=== PATIENT | male | born 1950 | race Two or more races ===

== ENCOUNTER 2024-10-03 14:01 | Outpatient (AMB) | payer MEDICARE, SELFPAY ==
[2024-10-03 09:57] VITALS: BP 131/78; PULSE 65; RESP 17; TEMP 36.6; O2SAT 97; BMI 25.2
--- NOTE | 2024-10-03 15:28 | PD.RESCLINIC ---
Vital Signs 10/03/24 09:57 Height 1.65 m Height Method Stated Weight 68.71 kg Weight Measurement Method Standing Scale BMI 25.2 BP 131/78 H Blood Pressure Source Automatic Cuff Blood Pressure Location Left Upper Arm Position Sitting Respiration 17 Pulse 65 Pulse Source Monitor Temp 97.8 F Temp Source Oral Pulse Oximetry (%) 97 Oxygen Delivery Method Room Air Allergies/Meds Allergies & Medications Allergies No Known Allergies Allergy (Verified 10/19/24 09:58) Medication Reconciliation blood pressure monitor (Blood Pressure Kit) #1 ea 02/13/24 [Rx Confirmed 10/19/24] blood sugar diagnostic (Accu-Chek Guide test strips) #100 ea 02/27/24 [Rx Confirmed 10/19/24] lancets (Accu-Chek Softclix Lancets) #100 ea 02/27/24 [Rx Confirmed 10/19/24] blood-glucose meter (Accu-Chek Guide Glucose Meter) #1 ea 02/29/24 [Rx Confirmed 10/19/24] aspirin 81 mg capsule 81 mg PO QDAY #30 caps 08/08/24 [Rx Confirmed 10/19/24] atorvastatin 80 mg tablet 80 mg PO QPM 1 month #30 tabs 08/08/24 [Rx Confirmed 10/19/24] carvedilol 12.5 mg tablet 12.5 mg PO BID #30 tabs 08/08/24 [Rx Confirmed 10/19/24] clopidogrel 75 mg tablet (Plavix) 75 mg PO QDAY 1 month #30 tabs 08/08/24 [Rx Confirmed 10/19/24] empagliflozin 10 mg tablet 10 mg PO QDAY #30 tabs 08/08/24 [Rx Confirmed 10/19/24] flash glucose scanning reader (Backupify Selam 2 [place]) #1 ea 08/08/24 [Rx Confirmed 10/19/24] furosemide 40 mg tablet 40 mg PO QAM 1 month #30 tabs 08/08/24 [Rx Confirmed 10/19/24] loperamide 2 mg capsule 2 mg PO Q6H PRN loose stool #14 caps 08/08/24 [Rx Confirmed 10/19/24] losartan 100 mg tablet 100 mg PO QDAY 1 month #30 tabs 08/08/24 [Rx Confirmed 10/19/24] metformin 500 mg tablet,extended release 24 hr 500 mg PO QDAY 1 month #30 tabs 08/08/24 [Rx Confirmed 10/19/24] flash glucose sensor (FreeStyle Selam 2 Sensor kit) #1 ea 10/03/24 [Rx Confirmed 10/19/24] MA Intake Visit Data Collection New Patient or Established: Established Patient (seen at [facility] within 3 years) Seen by Clinical Staff ONLY (RN/MA): No Pain Present Currently: No Pain scale:: 0 Pain Scale Used: [place]/Numerical PCP or OBGYN visit in last 3 months: Yes Hx Now: No Do You Feel Safe at Home: Yes Authorities Contacted: N/A Smoking Status Smoking Status: Never smoker Immunization / Flu Flu Vaccine in the Last 12 Months: No Flu Vaccine Exclusion Criteria: No Exclusion Criteria Past Medical History Past Medical History NEUROLOGIC: Negative Neurological Disorders CARDIAC: Negative Cardiac Disorders or Congestive Heart Failure RESPIRATORY: Negative Chronic Obstructive Pulmonary Disease (COPD) GASTROINTESTINAL: Positive Gastrointestinal Disorders and Hiatal Hernia; Negative Hepatitis or Colorectal Cancer GENITOURINARY: Negative Genitourinary Disorders, Renal Disease or Prostate Cancer REPRODUCTIVE: Negative Breast Cancer or Testicular Cancer MUSCULOSKELETAL: Negative Bone Cancer ENDOCRINE: Positive Endocrine Disorders and Diabetes Mellitus Type 2; Negative Diabetes Mellitus Type 1 HEMATOLOGIC: Negative Blood Disorders OTHER HISTORY: Positive Hospitalization; Negative Down Syndrome, Developmental Delay, Shingles, Falls, Blood Transfusions, Blood Transfusion Reaction, Anesthesia Reactions, Organ Transplant, Chemotherapy, Radiation Therapy, Hyperbaric Therapy, MRSA, VRSA, Vancomycin-Resistant Enterococci, Human Immunodeficiency Virus (HIV), Chicken Pox, Measles, Mumps, Rubella (Pashto Measles), Pertussis, Clostridium Difficile, Cancer, Breast Cancer, Cervical Cancer, Colorectal Cancer, Lung Cancer, Ovarian Cancer, Prostate Cancer or Testicular Cancer Family History FAMILY HISTORY: Negative Family Psychiatric Problems, Family Respiratory Disorders, Family Cardiac Disorders, Family Gastrointestinal Problems, Family Cancer, Family Surgery or Family Anesthesia Reaction Surgical History SURGICAL: Negative Cardiac Surgery, Endocrine Surgery, Ear Surgery, Abdominal Surgery, Nephrectomy, Joint Replacement, Neurologic Surgery, Vasectomy or Organ Transplant Social History SMOKING STATUS: Smoking status: Never smoker SECOND HAND EXPOSURE: second hand exposure: No ALCOHOL: Alcohol Intake: Never HOUSING: Housing: House LIVES WITH: Lives With: Family OCCUPATION: Current occupation: [employer] Patient [employer] Questionaires Social History Living Situation History Housing: House Tobacco History Smoking Status: Never smoker Second Hand Smoke Exposure: No Alcohol History Alcohol Intake: Never Substance Use History Substance Use: meth Domestic Abuse History Do You Feel Safe at Home: Yes Review of Systems Report any current symptoms Only answer those that you have currently: Past Medical History Past Medical History Have you ever been diagnosed with any of the following: Cardiology Problems Congestive Heart Failure: No Respiratory Problems Chronic Obstructive Pulmonary Disease (COPD): No Stomache/Intestinal Problems Hepatitis: No Colorectal Cancer: No Hiatal Hernia: Yes Genital/Urinary Problems Renal Disease: No Prostate Cancer: No Reproductive Problems Breast Cancer: No Testicular Cancer: No Musculoskeletal Problems Bone Cancer: No Endocrine Problems Diabetes Mellitus Type 1: No Diabetes Mellitus Type 2: Yes Other Problems Hospitalization: Yes Down Syndrome: No Developmental Delay: No Shingles: No Falls: No Blood Transfusions: No Blood Transfusion Reaction: No Anesthesia Reactions: No Organ Transplant: No Chemotherapy: No Radiation Therapy: No Hyperbaric Therapy: No MRSA: No VRSA: No Vancomycin-Resistant Enterococci: No Human Immunodeficiency Virus (HIV): No Chicken Pox: No Measles: No Mumps: No Rubella (Pashto Measles): No Pertussis: No Clostridium Difficile: No Cancer: No Cervical Cancer: No Lung Cancer: No Ovarian Cancer: No History of Present Illness HPI Narrative Patient is a 73-year-old male with past medical history of HTN, non-insulin dependent DM II, Methamphetamine abuse, HFrEF and recent CVA presented to the clinic for follow up visit after hospital discharge. 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 MRI was done in the hospital which showed. Large acute infarct left brainstem, pontine level. Patient had physical and speech therapy evaluation and was discharged on dual antiplatelets along with statin. He was also referred to Neurology and has an upcoming appointment next month. He is also being followed by home physical therapy starting today. 08/08/2024: Patient comes in as follow up from last month for his labs and got his new insurance card. He endorses increased stool production after starting metformin. Endorses to still eating chicken and fish. He needs to decrease consumption of soda. Patient denies headache, fever, chills, chest pain, palpitation, shortness of breath, dizziness, nausea, vomiting. Continue losartan, clopidogrel, atorvastatin, lasix, Jardiance, and metformin. Will add loperamide for excessive diarrhea episodes. 10/03/2024: Patient and family (Samara) here with Freestyle Selam 2 reader, but no sensor. Sensor ordered. No acute problems since July. Diarrhea improved, not taking loperamide. Had attempted stool studies outpatient but issue with collection, and so was unable to submit for analysis or process. No plans to pursue further stool study samples at this time. Has not seen supervisor dried yeast or eye doctor within last year. Encourage to see for yearly check up for diabetes. Last A1c in January, will get recheck. See patient again when pickup FS2 sensor and A1c. Review of Systems Review of Systems Systems Reviewed: All systems reviewed, normal except as documented Objective/Exam Narrative Physical exam: Constitutional: NAD. Sitting comfortably. HEENT: NCAT. Vision grossly intact. Respiratory: Non-tachypneic. Cardiac: Non-tachycardic. MSK: No B/L LE edema. Skin: Warm, dry, intact. No obvious lesions. Neuro: Motor and sensation grossly intact. Psychiatric: Appropriate mood and affect. Assessment & Plan Diagnosis / Problem List (1) Diabetes mellitus: Status: Chronic Qualifiers: Diabetes mellitus complication status: without complication Diabetes mellitus care home insulin use: without local company intermodal truck driver use Diabetes mellitus type: type 2 Qualified Code(s): E11.9 - Type 2 diabetes mellitus without complications Assessment & Plan: Last A1c on file is from January,.0 Plan: Continue metformin 500mg ER, not increasing due to diarrhea at this time Continue Jardiance Recheck A1c Freestyle Selam 2 sensor ordered, return to clinic to show how to put on Patient already has FS2 sensor Explained goal time in range and A1c Patient need yearly eye exam and foot exam (2) Diarrhea: Status: Resolved Assessment & Plan: Ddx: Metformin-induced diarrhea vs infectious diarrhea Most likely metformin-induced because the incidence of diarrhea increased in frequency with metformin. Infectious cause is not as likely considering no sick contacts and no recent travel. Patient endorses diarrhea episodes every other day. He noticed it on metformin. Attempted stool studes unsuccessfuly, not interested in continuing to pursue at this time (3) Heart failure with reduced ejection fraction: Status: Chronic Assessment & Plan: Echo 01/2025: Estimated EF 40-45%. Mild LVH. Mild hypokinesis of the basal mckeon. Plan: Continue lasix (4) Hypertension: Status: Chronic Qualifiers: Hypertension type: primary hypertension Qualified Code(s): I10 - Essential (primary) hypertension Plan: Continue losartan Qday Continue coreg (5) CVA (cerebral vascular accident): Status: Chronic Assessment & Plan: CVA in January 2024, MRI: Large acute infarct left brainstem, pontine level Follows up with neurology, to continue plavix Plan: Continue aspirin, plavix Continue statin Orders: Orders Ambulatory Hemoglobin A1C 10/03/24 E11.9 - Type 2 diabetes mellitus without complications Advanced Care Planning Advance care planning discussed with:: patient and spouse Office Procedures [facility] Level of Care Nursing/Assessment Patient Status: Established Patient Nursing Assessment/Reassessment: Medication Reconciliation, Update PMH in EMR and Vital Signs Coordination of Care: Complex Care and Chronic Disease 1-5, Consent,records obtained, informed consent, Education Simp Pt/Fam, Lab and Imaging orders and Staff clarify orders Established Patient Charge Established Patient Point Assignment: 100 Established Patient Point Charge: EP Level 3 (80-115)
== END 2024-10-03 14:37 | disposition home or self-care (01) ==
LOC: HODAHC 14:01
PROVIDERS: Supervising Provider Internal Medicine; Visit Provider Student in an Organized Health Care Education/Training Program
DX: E11.9 Type 2 diabetes mellitus without complications (principal); Z79.4 Long term (current) use of insulin; I11.0 Hypertensive heart disease with heart failure; I50.20 Unspecified systolic (congestive) heart failure; Z86.73 Personal history of transient ischemic attack (TIA), and cerebral infarction without residual deficits; Z79.02 Long term (current) use of antithrombotics/antiplatelets
CPT/HCPCS: 99213; G0463